=== PATIENT | male | born 1990 | race African-American/Black ===

== ENCOUNTER 2019-06-21 21:24 | Emergency (ER) | payer OTHER ==
[2019-06-21 21:44] VITALS: TEMP 98.4; BMI 28.1
[2019-06-21] MEDS ORDERED: IBUPROFEN 600 MG TABLET (FP) PO ONE (22:20)
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
[2019-06-21 22:52] VITALS: BP 123/69; PULSE 63
== END 2019-06-21 22:50 | disposition home or self-care (01) ==
LOC: JER 21:24
DX: S13.4XXA Sprain of ligaments of cervical spine, initial encounter (principal); Y04.0XXA Assault by unarmed brawl or fight, initial encounter; Y93.89 Activity, other specified; Y92.89 Other specified places as the place of occurrence of the external cause; Y99.8 Other external cause status
CPT/HCPCS: 99282-25